=== PATIENT | female | born 1980 | race Hispanic/Latino ===

== ENCOUNTER 2021-07-26 10:23 | Emergency (ER) | payer SELFPAY ==
[2021-07-26 10:38] VITALS: BP 120/76; PULSE 64; RESP 20; TEMP 36.8; O2SAT 100
--- NOTE | 2021-07-26 11:36 | ED.SKABFB ---
HPI - Skin/Abscess/Foreign Bdy General Chief complaint: Skin/Abscess/Foreign Body Stated complaint: Swollen Leg Time Seen by Provider: 07/26/21 11:36 Source: patient, family, RN notes reviewed and old records reviewed Mode of arrival: ambulatory Limitations: language barrier and other (niece as patient attendant) History of Present Illness HPI narrative: 41 year old female presents to [facility] accompanied by niece with complaints of itching to her lower legs and feet for the past month with increase to feet for the past 2 weeks. Patient reports swelling and pain to her feet and is making it difficult for her to do her job.Patient has thick crusted skin to bottom and sides of her feet bilaterally with serous fluid and bleeding on distal tops of feet that is crusty and some blister type of lesions between toes. 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 Patient has not tried any OTC medications to feet. MD complaint: rash Onset (ago): month(s) (1) Related Data Allergies Allergy/AdvReac Type Severity Reaction Status Date / Time No Known Allergies Allergy Verified 07/26/21 11:23 Review of Systems Review of Systems: CONSTITUTIONAL: Denies fever, chills, or sweats. EYES: Denies visual changes, redness, or discharge. ENT: Denies rhinorrhea, congestion, sore throat, or otalgia. CARDIOVASCULAR: Denies chest pain, palpitations, or edema. RESPIRATORY: Denies cough or dyspnea. GASTROINTESTINAL: Denies abdominal pain, nausea, vomiting, or diarrhea. GENITOURINARY: Denies dysuria or hematuria. SKIN: Positive for rash and itching to feet with some burning type of discomfort. MUSCULOSKELETAL: Denies back pain, joint pain, or myalgia. NEUROLOGIC: Denies headache, numbness, or weakness. PSYCHIATRIC: Denies anxiety or depression. All systems reviewed & are unremarkable except as noted in HPI and below PMFSH Past Medical History Medical History (Updated 07/27/21 @ 14:27 by Renay Coleman NP) No pertinent past medical history Surgical History Surgical History (Updated 07/27/21 @ 14:27 by Renay Coleman NP) No history of previous surgery Family History Family History (Updated 07/27/21 @ 14:28 by Renay Coleman NP) Other Family history non-contributory Social History Social History (Updated 07/27/21 @ 14:27 by Renay Coleman NP) Smoking status: Never smoker Alcohol intake: never Substance use: never Living arrangements: with family Gender identity (if verbalized by the patient): Female Comments At time of signature, agree with nursing past medical, surgical, social and family history. There is no relevant family history pertinent to the presenting complaint Exam Narrative: GENERAL: Well-appearing, well-nourished, and in no acute distress. HEAD: Normocephalic, atraumatic. EYES: PERRLA and EOMI. ENT: Nares clear, no rhinorrhea or epistaxis. Mucous membranes moist.TM's normal throat pink with no lesions or exudates, o tonsil enlargement NECK: Supple.no lymphadenopathy CHEST: Clear to auscultation. No respiratory distress.SAO2 100% on room air HEART: Regular rate and rhythm. No murmur heard. Normal peripheral pulses. ABDOMEN: Soft, nontender, nondistended, normal active bowel sounds. EXTREMITIES: Normal range of motion. minimal edema to feet no pretibial edema. SKIN: Warm, dry, thick cracked skin noted on bottom and on sides of feet bilaterally with some excoriated areas with serous drainage noted to distal feet with small blistery lesions noted between several toes that are weeping, some dry crusted areas on skin of toes. Patient states that her feet are itchy, nails are hardened, pulses palpable to bilateral feet and are warm to touch. NEURO: No focal deficits. Alert and oriented x3. Course Vital Signs Vital signs: Vital Signs Temperature 36.8 C 07/26/21 10:38 Pulse Rate 64 07/26/21 10:38 Respiratory Rate
== END 2021-07-26 12:00 | disposition home or self-care (01) ==
PROVIDERS: Emergency Provider Registered Nurse; PCP Registered Nurse
DX: B35.3 Tinea pedis (principal)
CPT/HCPCS: 99213; G0463

== ENCOUNTER 2024-08-04 09:32 | Emergency (ER) | payer SELFPAY ==
--- NOTE | ~2024-08-04 | CT_ITS ---
CTA chest PE protocol Ordering provider: Pablo Panda MD History: 44 years Female with . chest pain, d dimer . Comparison: Technique: CT angiogram chest was performed following timed intravenous injection of contrast. Thin s lice axial images and reformatted coronal images were obtained. Three dimensional reformatted images of the chest were also obtained using a [employer] workstation. . Automated exposure control and iterati ve reconstruction technique were employed. The dose-length product was 435.72 mGy-cm. 100 mL Omnipaqu e 350 was given IV. Findings: PULMONARY ARTERIES: No pulmonary embolus. VISUALIZED THORACIC INLET: Normal. MEDIASTINUM: Aorta/coronary arteries: Mild atheromatous disease. Heart/other: The heart is slightly enlarged. Lymph nodes: No mediastinal or hilar adenopathy. LUNGS: Bilateral basal pneumonia is noted. Patchy areas of pneumonia are seen in the upper lobes. Atypical o r viral pneumonia should be considered. Minimal left pleural effusion is noted. No pulmonary nodules or masses. No pneumothorax. VISUALIZED UPPER ABDOMEN: Fat infiltration of the liver. Otherwise, the visualized upper abdomen is n ormal. MUSCULOSKELETAL: Soft tissues: The superficial soft tissues are normal. Bones: Age appropriate degenerative changes of the spine. . Old healed fractures are seen in the left hemithorax. IMPRESSION: 1. No pulmonary embolism. 2. Bilateral pneumonia in the upper and lower lobes. 3. Fat infiltration of the liver. Reviewed, dictated and finalized at location A.
--- NOTE | ~2024-08-04 | XR_ITS ---
XR chest 1V portable 08/04/2024 11:57 Indication: Shortness of breath Procedure: AP portable chest Comparison: No prior studies for comparison. Findings: There is extensive bilateral airspace disease. Possible small effusion. No pneumothorax. No acute osseous abnormality. Impression: 1: Extensive bilateral airspace disease which may represent pneumonia or edema. Reviewed, dictated and finalized at location B. Impression: 1: Extensive bilateral airspace disease which may represent pneumonia or edema.
[2024-08-04 10:03] VITALS: BP 115/79; PULSE 78; RESP 16; TEMP 36.6; O2SAT 94
[2024-08-04 11:29] VITALS: BP 121/71; PULSE 71; RESP 21; TEMP 36.6; O2SAT 96
[2024-08-04 11:34] VITALS: O2SAT 96
--- NOTE | 2024-08-04 12:13 | ECG_ITS ---
Test Date: 2024-08-04 12:33:42 Measurements Intervals Loyal Rate: 71 P: 11 NC: 149 QRS: -35 QRSD: 78 T: -16 QT: 399 QTc: 435 Interpretive Statements SINUS RHYTHM WITH SINUS ARRHYTHMIA LEFT AXIS DEVIATION PATTERN CONSISTENT WITH PULMONARY DISEASE LEFT VENTRICULAR HYPERTROPHY T WAVE ABNORMALITY IN INFERIOR LEADS- CONSIDER ISCHEMIA BASELINE ARTIFACT- I, II, III, AVR, AVL, AVF ABNORMAL ECG No previous ECG available for comparison Electronically Signed On 08-04-2024 15:41:46 CDT by Chi Vital D.O.
--- NOTE | 2024-08-04 12:14 | ED.GENADULT ---
HPI - General Adult General Chief complaint: Upper Respiratory Infection Stated complaint: can't breathe Time Seen by Provider: 08/04/24 11:42 History of Present Illness HPI narrative: 44-year-old female presenting to the emergency department for complaint heart pain. Patient states she has had ongoing symptoms for approximately 1 month. Patient states her symptoms started possibly 3 months ago when she stopped having a primary care physician. Patient states when she is at rest she has no pain but when she takes a deep breath coughs or lifts anything that she has onset chest pain. Patient points to epigastric and midline area as location of the pain. Patient states that she still has a gallbladder. Patient denies alcohol consumption denies any prior history of gastritis. Patient denies taking large doses of ibuprofen. Patient denies any prior history of coronary artery disease. Patient denies any recent coughs colds or fevers. Related Data Allergies Allergy/AdvReac Type Severity Reaction Status Date / Time No Known Allergies Allergy Verified 08/04/24 09:33 Review of Systems Review of Systems: All systems reviewed & are unremarkable except as noted in HPI and below PMFSH Past Medical History Medical History (Updated 08/04/24 @ 14:40 by Pablo Panda MD) No pertinent past medical history Surgical History Surgical History (Updated 07/27/21 @ 14:27 by Renay Coleman NP) No history of previous surgery Family History Family History (Updated 07/27/21 @ 14:28 by Renay Coleman NP) Other Family history non-contributory Social History Social History (Updated 07/27/21 @ 14:27 by Renay Coleman NP) Smoking status: Never smoker Alcohol intake: never Substance use: never Living arrangements: with family Gender identity (if verbalized by the patient): Female Exam Narrative: APPEARANCE: Well appearing, no pain, no distress, well-nourished. HEAD: normocephalic, atraumatic. EYES: PERRLA/EOMI, conjunctivae clear. NOSE: Normal no drainage EARS:TMS clear with good light reflex. THROAT: Pharynx clear, no exudate. NECK: Supple. No adenopathy, no masses. RESPIRATORY: Airway patent, respirations nonlabored. Clear to auscultation bilaterally, no rales, rhonchi, wheezing. CARDIOVASCULAR: Regular rate and rhythm without murmurs rubs or gallops. ABDOMINAL: Epigastric tenderness to palpation MUSCULOSKELETAL: Moves all extremities. Strength/ROM intact, No edema, No calf tenderness. NEURO: Alert. Cranial nerves II through XII intact. Grossly intact SKIN: Warm, dry. Normal Color Course Course Emergency Course: Patient was treated for bacterial pneumonia discharged home. Vital Signs Vital signs: Vital Signs Temperature 97.8 F 08/04/24 10:03 Pulse Rate 78 08/04/24 10:03 Respiratory Rate 16 08/04/24 10:03 Blood Pressure 115/79 08/04/24 10:03 Pulse Oximetry 94 08/04/24 10:03 Temperature 97.9 F 08/04/24 11:29 Pulse Rate 85 08/04/24 14:52 Respiratory Rate 20 08/04/24 14:52 Blood Pressure 112/58 L 08/04/24 14:52 Pulse Oximetry 98 08/04/24 14:52 Oxygen Delivery Room Air 08/04/24 11:34 Medical Decision Making MDM Narrative Medical decision making narrative: [age] old female presents emergency department for evaluation of left-sided chest pain. Patient was afebrile with no ptosis stable hemoglobin 11.9. Patient has no acute abnormalities on her CMP. Patient's D-dimer was elevated at 0.86 so CTA was ordered in order to rule out pulmonary embolism. CT was negative for pulmonary embolism but did confirm pneumonia. Patient was started on antibiotics in the emergency department discharged home on antibiotics. Patient had no oxygen requirement and was well-appearing. Patient family were updated the results of the workup and importance antibiotics. Patient was also encouraged close follow-up with primary care physician. Differential Diagnosis
[2024-08-04 12:34] VITALS: BP 103/68; PULSE 73; RESP 20; O2SAT 95
[2024-08-04 12:42] LABS: Basophils Absolute Auto 0.1 K/mm3 (0.0-0.1); Basophils Percent Auto 0.9 % (0.2-1.2); Eosinophils Absolute Auto 0.7 K/mm3 (0-0.3); Eosinophils Percent Auto 7.2 % (0-4.4); Hematocrit 37.5 % (37.0-47.0); Hemoglobin 11.9 g/dL (12.0-15.0); Immature Granulocyte Absolute 0.03 K/mm3 (0.00-0.031); Immature Granulocyte Percent A 0.3 % (0-0.5); Lymphocytes Absolute Auto 1.33 K/mm3 (0.9-3.2); Mean Corpuscular HGB Conc 31.7 g/dl (32-36); Mean Corpuscular Hemoglobin 26.4 pg (26-34); Mean Corpuscular Volume 83.1 fl (80-100); Mean Platelet Volume 9.1 fl (7.4-10.4); Monocytes Absolute Auto 0.6 K/mm3 (0.1-0.6); Monocytes Percent Auto 6.2 % (2.6-8.5); Neutrophils Absolute Auto 6.8 K/mm3 (1.3-6.7); Neutrophils Percent Auto 71.4 % (45.5-73.1); Platelet Count Result 378 k/mm3 (150-375); Red Blood Count 4.51 M/mm3 (4.2-5.4); Red Cell Distribution Width 13.6 % (11.5-14.5); White Blood Count 9.5 K/mm3 (4.5-10.0)
[2024-08-04 12:52] LABS: Alanine Aminotransferase 20 U/L (6-35); Albumin Level 3.9 g/dL (3.5-5.1); Alkaline Phosphatase 101 U/L (38-126); Anion Gap 7 mmol/L (4-12); Aspartate Amino Transferase 33 U/L (14-36); Bilirubin,Total 0.3 mg/dL (0.2-1.3); Blood Urea Nitrogen 7 mg/dL (7-17); Calcium 8.3 mg/dL (8.4-10.2); Carbon Dioxide 23 mmol/L (22-30); Chloride 105 mmol/L (98-107); Estimated Glomerular Filt Rate > 60; Glucose 87 mg/dL (65-110); Lipase 63 U/L (23-300); Sodium 135 mmol/L (137-145)
[2024-08-04 12:54] LABS: Partial Thromboplastin Time 30.5 Seconds (22.3-36.8); Prothrombin Time 13.6 Seconds (11.1-14.7)
[2024-08-04 12:58] LABS: D Dimer 0.86 ug/mL (<0.48)
[2024-08-04 13:03] LABS: Troponin I < 0.012 ng/mL (0.000-0.034)
[2024-08-04 13:17] LABS: Influenza A QL RT-PCR Negative (Negative); Influenza B QL RT-PCR Negative (Negative); RSV RNA, RT-PCR Negative (Negative); SARS-CoV-2 RNA PCR Negative (Negative)
[2024-08-04 13:37] LABS: Add Urine Microscopic? YES; Appearance Urine Cloudy (Clear); Bacteria Urine Rare /hpf; Bilirubin Urine Negative (Negative); Blood Urine Negative (Negative); Color Urine Yellow (Yellow); Glucose Urine UA Negative (Negative); Ketones Urine Negative (Negative); Leukocyte Esterase Ur Negative LEU/UL (Negative); Nitrate Urine Negative (Negative); Non Pathogenic Casts 0-2; Protein Urine Negative (Negative); RBC Urine 0-2 /hpf (0-2); Specific Grav Ur 1.016 (1.001-1.035); Squamous Epithelial Cell Urine Moderate /hpf (Few); Urobilinogen Urine 0.2 mg/dL (<2.0); WBC Urine 0-5 /hpf (0-3)
[2024-08-04] MEDS: AMOXICILLIN/CLAVULANATE K 875-125 MG TAB 1 TABLET PO (14:43)
[2024-08-04] MEDS: AZITHROMYCIN 250 MG TABLET 500 MG PO (14:44)
[2024-08-04 14:52] VITALS: BP 112/58; PULSE 85; RESP 20; O2SAT 98
== END 2024-08-04 14:54 | disposition home or self-care (01) ==
PROVIDERS: Emergency Provider Emergency Medicine; PCP Registered Nurse
DX: J18.9 Pneumonia, unspecified organism (principal); Z20.822 Contact with and (suspected) exposure to COVID-19; R94.31 Abnormal electrocardiogram [ECG] [EKG]; I51.7 Cardiomegaly; K76.0 Fatty (change of) liver, not elsewhere classified
CPT/HCPCS: 36415; 71045; 71275; 80053; 81001; 83690; 84484; 85025; 85380; 85610; 85730; 87637; 93005; 99284; A9270; Q9967

== ENCOUNTER 2024-09-30 15:38 | Outpatient (CLI) | payer SELFPAY ==
--- NOTE | ~2024-09-30 | XR_ITS ---
EXAMINATION: XR chest 2V Exam Date/Time: 09/30/2024 16:01 PRODUCT MARKETER HISTORY: pneumonia Comparison: 08/04/2024; CTPA 08/04/2024. RESULT: Lines, tubes, and devices: None. Lungs and pleura: Patchy subsegmental and segmental consolidation in the bilateral mid and lower antonio gs. Mild bilateral costophrenic angle blunting. Cardiomediastinal silhouette: Stable. Other: No acute osseous or upper abdominal finding. IMPRESSION: Extensive bilateral airspace disease may represent edema or pneumonia. Possible small bilateral effus ions. Findings are similar to the comparison studies. Reviewed, dictated and finalized at location K. UCT MARKETER IMPRESSION: Extensive bilateral airspace disease may represent edema or pneumonia. Possible small bilateral effusions. Findings are similar to the comparison studies.
== END 2024-09-30 15:39 | disposition home or self-care (01) ==
PROVIDERS: PCP Registered Nurse; Visit Provider Registered Nurse
DX: J18.9 Pneumonia, unspecified organism (principal)
CPT/HCPCS: 71046